=== PATIENT | female | born 1960 | race Caucasian/White ===

== ENCOUNTER 2017-09-22 10:14 | Outpatient (CLI) | payer OTHER ==
--- NOTE | 2017-09-22 11:03 | RAD ---
TWO VIEWS CHEST: DATE: 09/22/17. PROVIDED CLINICAL HISTORY: Cough. FINDINGS: Cardiac and mediastinal silhouette is within normal limits. The lungs appear clear. There is no ple ural fluid or pneumothorax apparent. IMPRESSION: No evidence for an acute cardiopulmonary process. POS: [facility]
== END 2017-09-22 10:15 | disposition home or self-care (01) ==
LOC: RAD-FRANK 10:14
PROVIDERS: ATTEND Nurse Practitioner Family
DX: R05 Cough (principal)
CPT/HCPCS: 71046

== ENCOUNTER 2017-10-06 07:59 | Outpatient (CLI) | payer OTHER ==
--- NOTE | 2017-10-06 10:13 | RAD ---
TWO VIEW CHEST: History: Chest pain. Comparison: 09-22-17 FINDINGS: The lung saleem are clear. No infiltrates seen. No evidence of vascular congestion. Heart and mediast inum are unremarkable. IMPRESSION: No evidence of acute process. POS: [facility]
== END 2017-10-06 08:00 | disposition home or self-care (01) ==
LOC: RAD-FRANK 07:59
PROVIDERS: ATTEND Nurse Practitioner Family
DX: R07.9 Chest pain, unspecified (principal)
CPT/HCPCS: 71046

== ENCOUNTER 2017-10-21 09:32 | Outpatient (CLI) | payer OTHER ==
--- NOTE | 2017-10-21 10:28 | ULT ---
ULTRASOUND ABDOMEN COMPLETE: HISTORY: 57-year-old female with elevated liver function tests. R79.89 FINDINGS: The gallbladder has normal wall thickness and has no evidence of gallstones or sludge. The hepatic e chogenicity is normal. The kidneys have normal echogenicity, and there is no hydronephrosis. There is no splenomegaly. There is no abdominal aortic aneurysm. No free fluid is identified. The inferi or vena cava is visualized. The pancreas is obscured by shadowing from bowel gas. There is no bilia ry dilation. The common duct caliber is 3 mm. IMPRESSION: 1) No pathology identified. 2) Pancreas not visualized. denilson POS: [facility]
== END 2017-10-21 09:33 | disposition home or self-care (01) ==
LOC: ULT 09:32
PROVIDERS: ATTEND Nurse Practitioner Family
DX: R79.89 Other specified abnormal findings of blood chemistry (principal)
CPT/HCPCS: 76700

== ENCOUNTER 2018-12-08 15:49 | Outpatient (CLI) | payer OTHER ==
--- NOTE | 2018-12-08 16:22 | MMO ---
Bilateral MAMMO Bilat Screen [facility]. CLINICAL HISTORY: Patient is 58 years old and is seen for screening. The patient has the following family history of breast cancer: mother. The patient has no personal history of cancer. VIEWS: The views performed were: bilateral craniocaudal with tomosynthesis and bilateral mediolateral oblique with tomosynthesis. FILMS COMPARED: The present examination has been compared to a prior imaging study performed at [facility] on 12/08/2016. MAMMOGRAM FINDINGS: There are scattered fibroglandular densities. There are no suspicious masses, suspicious calcifications, or new areas of architectural distortion. IMPRESSION: THERE IS NO MAMMOGRAPHIC EVIDENCE OF MALIGNANCY. A ROUTINE FOLLOW-UP MAMMOGRAM IN 1 YEAR IS RECOMMENDED. THE RESULTS OF THIS EXAM WERE SENT TO THE PATIENT. ACR BI-RADS Category 1 - Negative MAMMOGRAPHY NOTE: 1. A negative mammogram report should not delay a biopsy if a dominant of clinically suspicious mass is present. 2. Approximately 10% to 15% of breast cancers are not detected by mammography. 3. Adenosis and dense breasts may obscure an underlying neoplasm.
== END 2018-12-08 15:50 | disposition home or self-care (01) ==
LOC: BICMAMMO 15:49
PROVIDERS: ATTEND Nurse Practitioner Family
DX: Z12.31 Encounter for screening mammogram for malignant neoplasm of breast (principal); Z80.3 Family history of malignant neoplasm of breast
CPT/HCPCS: 77063; 77067

== ENCOUNTER 2022-03-03 10:28 | Outpatient (CLI) | payer BC | END 2022-03-03 10:29 | disposition home or self-care (01) | LOC: BICMAMMO 10:28 | PROVIDERS: ATTEND Nurse Practitioner Family | DX: Z12.31 Encounter for screening mammogram for malignant neoplasm of breast (principal); Z80.3 Family history of malignant neoplasm of breast | CPT/HCPCS: 77063; 77067 ==

== ENCOUNTER 2025-06-19 14:47 | Outpatient (CLI) | payer MEDICARE, OTHER | END 2025-06-19 14:48 | disposition home or self-care (01) | LOC: BICMAMMO 14:47 | PROVIDERS: ATTEND Nurse Practitioner Family | DX: Z12.31 Encounter for screening mammogram for malignant neoplasm of breast (principal); Z80.3 Family history of malignant neoplasm of breast | CPT/HCPCS: 77063; 77067 ==